=== PATIENT | female | born 1990 | race American Indian/Alaskan Native ===

== ENCOUNTER 2019-09-18 20:37 | Emergency (ER) | payer OTHER ==
--- NOTE | 2019-09-18 20:58 | Emergency Department Report ---
Blank Doc - Documentation Documentation: 29-year-old female that presents with URI symptoms. This initial assessment/diagnostic orders/clinical plan/treatment(s) is/are subject to change based on patient's health status, clinical progression and re- assessment by fellow clinical providers in the ED. Further treatment and workup at subsequent clinical providers discretion. Patient/guardians urged not to elope from the ED as their condition may be serious if not clinically assessed and managed. Initial orders include: 1- Patient sent to [facility] for further evaluation and treatment 2- CXR
--- NOTE | 2019-09-18 22:14 | XRay Report ---
CHEST PA AND LATERAL VIEWS INDICATION: cough. COMPARISON: None FINDINGS: Support devices: None Heart: Normal Lungs/Pleura: Focal dense consolidation in the medial segment of the left lower lobe, consistent with pneumonia. No significant pleural fluid. Right lung is clear. IMPRESSION: 1. Left lower lobe pneumonia. Signer Name: Ralf Carlisle MD Signed: 09/18/2019 10:10 PM Workstation Name: [id number]
[2019-09-19] MEDS ORDERED: LIDOCAINE-MPF (1%) 10 MG/1 ML VIAL 5 ML INFILTRATI ONE (01:33)
[2019-09-19] MEDS ORDERED: AZITHROMYCIN 250 MG TAB PO STA (01:34)
--- NOTE | 2019-09-19 02:04 | Emergency Department Report ---
Minor Respiratory - HPI Chief Complaint: Upper Respiratory Infection Stated Complaint: PIEDRA/BODY ACHE /FLU Time Seen by Provider: 09/18/19 20:58 Duration: 3 Days Pain Location: Chest Severity: moderate Minor Respiratory: Yes Rhinorrhea, Yes Sore Throat, Yes Able to Tolerate Fluids, Yes Cough, Yes Shortness of Breath, Yes Fever, No Ear Pain, No Sick Contacts, No Hemoptysis, No Chest Pain ED Review of Systems ROS: Stated complaint: PIEDRA/BODY ACHE /FLU Other details as noted in HPI Comment: All other systems reviewed and negative ED Past Medical Hx - Past Medical History Previous Medical History?: No - Surgical History Past Surgical History?: No - Social History Smoking Status: Never Smoker Substance Use Type: None - Medications Home Medications: Home Medications Medication Instructions Recorded Confirmed Last Taken Type ALBUTEROL Inhaler (OR & NICU) 2 puff IH QID PRN #1 inhalation 09/19/19 Unknown Rx [ProAir HFA Inhaler] Azithromycin [Zithromax] 250 mg PO QDAY #4 tablet 09/19/19 Unknown Rx Minor Respiratory Exam - Exam General: Vital signs noted. No distress. Alert and acting appropriately. HEENT: Yes Moist Mucous Membranes, No Pharyngeal Erythema, No Pharyngeal Exud ates, No Rhinorrhea, No Conjuctival Injection, No Frontal Tenderness, No Maxillary Tenderness Ear: Neither TM Bulge, Neither TM Erythema, Neither EAC Pain, Neither EAC Discharge Neck: Yes Supple, No Adenopathy Lungs: Yes Good Air Exchange, Yes Ronchi, Yes Cough, No Wheezes, No Stridor, No Labored Respirations, No Retractions, No Use of Accessory Muscles, No Other Abnormal Lung Sounds Heart: Yes Regular, No Murmur Abdomen: Yes Normal Bowel Sounds, No Tenderness, No Peritoneal Signs Skin: No Rash, No Edema Neurologic: Alert and oriented, no deficits. Musculoskeletal: Unremarkable. ED Course Vital Signs 09/18/19 20:47 Temperature 98.6 F Pulse Rate 105 H Respiratory 20 Rate Blood Pressure 121/80 O2 Sat by Pulse 96 Oximetry ED Medical Decision Making - Radiology Data Radiology results: report reviewed [facility] [address] [place] [address] XRay Report Signed Patient: ALMA VARGAS MR# : [id number] : 1990 Acct:[id number] Age/Sex: 29 / F ADM Date: 09/18/19 Loc: ED Attending Dr: Ordering Physician: LOUISA WREN NP Date of Service: 09/18/19 Procedure(s): XR chest routine 2V Accession Number(s): [id number] cc: LOUISA WREN NP Fluoro Time In Minutes: CHEST PA AND LATERAL VIEWS INDICATION: cough. COMPARISON: None FINDINGS: Support devices: None Heart: Normal Lungs/Pleura: Focal dense consolidation in the medial segment of the left lower lobe, consistent with pneumonia. No significant pleural fluid. Right lung is clear. IMPRESSION: 1. Left lower lobe pneumonia. Signer Name: Ralf Carlisle MD Signed: 09/18/2019 10:10 PM Workstation Name: [id number] Transcribed By: TM Dictated By: Ralf Carlisle MD Electronically Authenticated By: Ralf Carlisle MD Signed Date/Time: 09/18/192209 Critical care attestation.: If time is entered above; I have spent that time in minutes in the direct care of this critically ill patient, excluding procedure time. ED Disposition Clinical Impression: Left lower lobe pneumonia Disposition: DC-01 TO HOME OR SELFCARE Is pt being admited?: No Does the pt Need Aspirin: No Condition: Stable Instructions: Bacterial Pneumonia (ED), Community-acquired Pneumonia (ED) Prescriptions: ALBUTEROL Inhaler (OR & NICU) [ProAir HFA Inhaler] 2 puff IH QID PRN #1 inhalation PRN Reason: Shortness Of Breath Azithromycin [Zithromax] 250 mg PO QDAY #4 tablet Referrals: [facility] [Provider Group] - 3-5 Days
[2019-09-19 03:04] VITALS: BP 126/81
== END 2019-09-19 03:04 | disposition home or self-care (01) ==
LOC: ED 20:37
DX: J18.1 Lobar pneumonia, unspecified organism (principal); Z79.899 Other long term (current) drug therapy
CPT/HCPCS: 71046; 96372; 99283; J0696